=== PATIENT | female | born 1940 | race Caucasian/White ===

== ENCOUNTER 2024-04-07 10:27 | Outpatient (CLI) | payer MEDICARE, OTHER | END 2024-04-07 10:28 | disposition home or self-care (01) | LOC: MRI 10:27 | PROVIDERS: ATTEND Family Medicine | DX: M48.062 Spinal stenosis, lumbar region with neurogenic claudication (principal); M47.816 Spondylosis without myelopathy or radiculopathy, lumbar region; M51.369 Other intervertebral disc degeneration, lumbar region without mention of lumbar back pain or lower extremity pain; M43.16 Spondylolisthesis, lumbar region; M41.9 Scoliosis, unspecified | CPT/HCPCS: 72148 ==

== ENCOUNTER 2024-04-12 12:26 | Outpatient (CLI) | payer MEDICARE, OTHER | END 2024-04-12 12:27 | disposition home or self-care (01) | LOC: BICMAMMO 12:26 | PROVIDERS: ATTEND Family Medicine | DX: Z12.31 Encounter for screening mammogram for malignant neoplasm of breast (principal); Z80.3 Family history of malignant neoplasm of breast | CPT/HCPCS: 77063; 77067 ==